=== PATIENT | male | born 1995 | race Caucasian/White ===

== ENCOUNTER 2024-01-25 01:23 | Day surgery (SDC) | payer BC ==
[2024-01-25] MEDS: HYDROmorphone 0.5 MG/0.5 ML Syringe IVPUSH ONE ×2 (01:50→02:59)
[2024-01-25] MEDS: Metoclopramide 10 MG/2 ML SDV IVPUSH ONE ×2 (01:50→06:59)
[2024-01-25] MEDS: Dextrose 5%-0.9% NaCl 1,000 ML IV SCH (01:50)
[2024-01-25 01:51] LABS: BASOPHILS ABSOLUTE AUTO 0.1 K/mm3 (0.0-0.2); BASOPHILS PERCENT AUTO 0.4 % (0.0-1.0); EOSINOPHILS ABSOLUTE AUTO 0.1 K/mm3 (0.0-0.4); EOSINOPHILS PERCENT AUTO 0.3 % (0.0-6.0); HEMATOCRIT 44.1 % (42.0-52.0); HEMOGLOBIN 15.3 gm/dl (14.0-18.0); IMMATURE GRAN ABSOLUTE AUTO 0.09 K/mm3 (0.00-0.05); IMMATURE GRAN PERCENT AUTO 0.6 % (0.0-0.4); LYMPHOCYTES ABSOLUTE AUTO 2.1 K/mm3 (1.0-4.8); LYMPHOCYTES PERCENT AUTO 12.8 % (24.0-44.0); MEAN CORPUSCULAR HEMOGLOBIN 29.2 pg (28.0-32.0); MEAN CORPUSCULAR HGB CONC 34.7 g/dl (32.0-36.0); MEAN CORPUSCULAR VOLUME 84.2 fl (83.0-99.0); MEAN PLATELET VOLUME 10.2 fl (9.4-12.4); MONOCYTES ABSOLUTE AUTO 1.4 K/mm3 (0.0-0.8); MONOCYTES PERCENT AUTO 8.5 % (0.0-8.0); NEUTROPHILS ABSOLUTE AUTO 12.4 K/mm3 (1.8-7.7); NEUTROPHILS PERCENT AUTO 77.4 % (41.0-71.0); PLATELET COUNT,PLT 349 K/mm3 (150-400); RED BLOOD CELL COUNT 5.24 M/mm3 (4.52-5.90); WHITE BLOOD CELL COUNT,WBC 16.06 K/mm3 (3.9-11.3)
[2024-01-25 02:04] LABS: A/G RATIO 1.3 (1-2); ALBUMIN 4.6 g/dl (3.4-5.0); ANION GAP 14.8 (5-15); BILIRUBIN TOTAL 0.5 mg/dL (0.2-1.0); BUN/CREATININE RATIO 7.3 (14-18); C-REACTIVE PROTEIN 0.38 mg/dL (<0.30); CALCIUM 10.6 mg/dL (8.5-10.1); CREATININE 1.5 mg/dL (0.7-1.3); EST CRCL DRUG DOSING (CG) 79.48 mL/min; POTASSIUM,K 3.8 mEq/L (3.5-5.1); PROTEIN TOTAL,TP 8.1 g/dl (6.4-8.2)
[2024-01-25] MEDS: Iopamidol 612 MG/ML 100 ML Bottle IVPUSH ONE (02:06)
[2024-01-25] MEDS: diphenhydrAMINE 50 MG/ML SDV IVPUSH ONE (03:07)
[2024-01-25] MEDS: Piperacillin/Tazobactam 4.5 GM in Sodium Chloride 0.9% 100 ML IV ONE (03:07)
[2024-01-25] MEDS: HYDROmorphone 1 MG/ML Syringe IVPUSH ONE ×2 (04:48→06:59)
[2024-01-25] MEDS ORDERED: HYDROmorphone 1 MG/ML Syringe IVPUSH ONE (04:50)
[2024-01-25 04:51] LABS: APPEARANCE,URINE CLEAR (Clear); BILIRUBIN,URINE NEGATIVE (Negative); COLOR,URINE YELLOW (Yellow); GLUCOSE,URINE NEGATIVE (Negative); KETONES,URINE NEGATIVE (Negative); LEUKOCYTE ESTERASE,URINE NEGATIVE (Negative); NITRITE,URINE NEGATIVE (Negative); OCCULT BLOOD,URINE NEGATIVE (Negative); PH,URINE 6.5 (5.0-8.0); PROTEIN,URINE NEGATIVE (Negative); UROBILINOGEN,URINE 0.2 (0.2-1.0)
[2024-01-25] MEDS ORDERED: Rocuronium 50 MG/5 ML Vial ONE (06:02)
[2024-01-25] MEDS ORDERED: Ondansetron 4 MG/2 ML SDV ONE (06:02)
[2024-01-25] MEDS ORDERED: Succinylcholine 200 MG/10 ML MDV ONE (06:02)
[2024-01-25] MEDS ORDERED: Ketorolac 30 MG/ML SDV ONE (06:02)
[2024-01-25] MEDS ORDERED: Propofol 200 MG/20 ML SDV ONE (06:02)
[2024-01-25] MEDS ORDERED: Dexamethasone 4 MG/ML 5 ML MDV ONE (06:02)
[2024-01-25] MEDS ORDERED: fentaNYL 100 MCG/2 ML SDV ONE (06:02)
[2024-01-25] MEDS ORDERED: Lidocaine 2% 5 ML SDV ONE (06:02)
[2024-01-25] MEDS ORDERED: Metoclopramide 10 MG/2 ML SDV ONE (06:03)
[2024-01-25] MEDS ORDERED: dexmedeTOMIDine HCl 200 MCG/2 ML SDV ONE (06:10)
[2024-01-25] MEDS ORDERED: Sugammadex Sodium 200 MG/2 ML VIAL IV ONE (06:44)
[2024-01-25] MEDS ORDERED: Lactated Ringers 1,000 ML IV ONE (07:03)
[2024-01-25] MEDS: cefOXitin 2 GM in Sodium Chloride 0.9% 50 ML IV ONE (07:07)
[2024-01-25] MEDS ORDERED: Sodium Chloride 0.9% 10 ML Syringe FLUSH PRN (07:19)
[2024-01-25] MEDS ORDERED: Lactated Ringers 1,000 ML IV SCH (07:30)
[2024-01-25] MEDS: EPINEPHrine 1 MG/ML SDV ONE (07:45)
[2024-01-25] MEDS: Bupivacaine 0.5% 30 ML SDV ONE (07:45)
[2024-01-25] MEDS ORDERED: Ondansetron 4 MG/2 ML SDV IVPUSH PRN (08:05)
[2024-01-25] MEDS ORDERED: fentaNYL 100 MCG/2 ML SDV IVPUSH PRN (08:05)
[2024-01-25] MEDS ORDERED: HYDROmorphone 0.5 MG/0.5 ML Syringe IVPUSH PRN (08:05)
[2024-01-25] MEDS ORDERED: Sodium Chloride 0.9% 10 ML Syringe FLUSH SCH (09:00)
[2024-01-25] MEDS: oxyCODONE 5 MG Tab PO ONE (10:50)
== END 2024-01-25 11:35 ==
LOC: JD.ED 01:23 → JD.SDS 07:02
PROVIDERS: ATTEND Surgery
DX: K35.30 Acute appendicitis with localized peritonitis, without perforation or gangrene (principal)
CPT/HCPCS: 36415; 44970; 74177; 80053; 81003; 83690; 85025; 86140; A9270; J0171; J0330; J0665; J0694; J1100; J1171; J1200; J1885; J2405; J2543; J2704; J2765; J3010; J3490; J7042; J7120; Q9967; 00840; 99285